=== PATIENT | male | born 1965 | race Caucasian/White ===

== ENCOUNTER 2019-03-31 14:13 | Emergency (ER) | payer BC, OTHER ==
[2019-03-31] MEDS: FAMOTIDINE 20 MG TAB PO (15:00)
== END 2019-03-31 15:05 | disposition home or self-care (01) ==
LOC: FTE 14:13
DX: L81.9 Disorder of pigmentation, unspecified (principal); I10 Essential (primary) hypertension; T46.7X5A Adverse effect of peripheral vasodilators, initial encounter; Z87.891 Personal history of nicotine dependence
CPT/HCPCS: 99283